=== PATIENT | female | born 1970 | race Caucasian/White ===

== ENCOUNTER 2020-09-13 14:18 | Outpatient (CLI) | payer BC ==
--- NOTE | 2020-09-13 15:35 | MRI ---
Exam: Brain MRI without contrast HISTORY: Daily left-sided headaches, x3-4 months. COMPARISON: None FINDINGS: Calvarial marrow signal intensity: Appropriate T1 signal Gradient echo sequence: No hemorrhage Brain parenchyma: No mass, mass effect or midline shift. Brain volume, age-appropriate. Cortical adame-white matter differentiation: Preserved Restricted diffusion: Central arterial flow voids are maintained. Absent restricted diffusion White matter signal intensities:Scattered nonspecific T2, FLAIR white matter hyperintensities in the right frontal subcortical white matter. Sinuses: Small left maxillary sinus mucus retention cyst IMPRESSION: 1. No parenchymal mass tube. Absent restricted diffusion 2. Nonspecific right frontal subcortical white matter hyperintensities
--- NOTE | 2020-09-13 15:47 | MRI ---
MRI Cervical Spine WO Con History: Neck and occipital pain Comparison: Cervical spine MRI 2013 Findings: Cerebral tonsils terminate at the foramen magnum. Reversal of normal cervical lordosis due to degenerative disc space change at C4-C7. No marrow infiltrative process. Paraspinal musculature is symmetric. No cervical adenopathy. Levels are as follows: C2/C3: Mild disc desiccation and height loss. Minimal uncinate process hypertrophy. No neural foramin al or spinal canal narrowing. C3/C4: Mild disc desiccation and height loss. Moderate left and mild right uncinate process appear to be. No significant neural foraminal narrowing. C4/C5: Severe degenerative disc space height loss. Moderate-large circumferential disc osteophyte com plex. Anterior cord abutment. Spinal canal measures 7 mm. Moderate left and mild right neural foraminal narrowing. C5/C6: Severe degenerative disc space height loss. 2 mm retrolisthesis. Moderate circumferential disc osteophyte complex. Moderate left and mild right neural foraminal narrowing. Anterior and posterior cord abutment with the spinal canal measuring 7 mm. Normal cord signal and bulk. C6/C7: Mild disc desiccation and height loss. Small circumferential disc bulge. No neural foraminal o r spinal canal narrowing. C7/T1: Normal disc height and hydration. No neural foraminal or spinal canal narrowing. Impression: 1. Advanced spondylosis for age from C4-C6 with anterior cord abutment and C4/C5 as well as very mild complete loss of CSF space at C5/C6 with concern for early cord impingement. 2. Multilevel neural foraminal narrowing.
--- NOTE | 2020-09-13 16:10 | RAD ---
CERVICAL SPINE FIVE VIEWS INCLUDING FLEXION AND EXTENSION LATERAL VIEWS: History: Neck pain radiating into both arms and elbows. FINDINGS: C1 and odontoid is mostly obscured on the AP open mouth views. Internal fixation screws are noted sta bilizing the right and left mandibular rami regions. Focal disc osteophytosis at C4-5 and C5-6. No si gnificant abnormal translation between flexion and extension. No prevertebral soft tissue swelling. M ild retrolisthesis of C5 on C6. IMPRESSION: Cervical spondylosis with disc osteophytosis particularly at C4-5 and C5-6 with mild retrolisthesis o f C5 on C6. No abnormal translation between flexion and extension. POS: RRE
== END 2020-09-13 14:19 | disposition home or self-care (01) ==
LOC: BICMRI 14:18
PROVIDERS: ATTEND Nurse Practitioner Family
DX: M54.81 Occipital neuralgia (principal); R51.9 Headache, unspecified; M47.812 Spondylosis without myelopathy or radiculopathy, cervical region; M25.78 Osteophyte, vertebrae; M48.02 Spinal stenosis, cervical region; R90.82 White matter disease, unspecified
CPT/HCPCS: 70551; 72040; 72141

== ENCOUNTER 2023-04-25 09:49 | Outpatient (CLI) | payer BC | END 2023-04-25 09:50 | disposition home or self-care (01) | LOC: BICMAMMO 09:49 | PROVIDERS: ATTEND Family Medicine | DX: Z12.31 Encounter for screening mammogram for malignant neoplasm of breast (principal); Z13.820 Encounter for screening for osteoporosis; M85.89 Other specified disorders of bone density and structure, multiple sites; Z78.0 Asymptomatic menopausal state; Z85.828 Personal history of other malignant neoplasm of skin | CPT/HCPCS: 77063; 77067; 77080 ==

== ENCOUNTER 2023-08-16 10:25 | Outpatient (CLI) | payer BC | END 2023-08-16 10:26 | disposition home or self-care (01) | LOC: BICMRI 10:25 | PROVIDERS: ATTEND Orthopaedic Surgery | DX: S89.92XA Unspecified injury of left lower leg, initial encounter (principal); M22.42 Chondromalacia patellae, left knee; M71.22 Synovial cyst of popliteal space [Baker], left knee ==

== ENCOUNTER 2024-04-30 10:18 | Outpatient (CLI) | payer BC | END 2024-04-30 10:19 | disposition home or self-care (01) | LOC: BICMAMMO 10:18 | PROVIDERS: ATTEND Family Medicine | DX: Z12.31 Encounter for screening mammogram for malignant neoplasm of breast (principal); M85.80 Other specified disorders of bone density and structure, unspecified site; M81.0 Age-related osteoporosis without current pathological fracture; Z85.828 Personal history of other malignant neoplasm of skin | CPT/HCPCS: 77063; 77067; 77080 ==

== ENCOUNTER 2025-07-08 14:53 | Outpatient (CLI) | payer OTHER | END 2025-07-08 14:54 | disposition home or self-care (01) | LOC: BICMAMMO 14:53 | PROVIDERS: ATTEND Family Medicine | DX: M81.0 Age-related osteoporosis without current pathological fracture (principal); N95.9 Unspecified menopausal and perimenopausal disorder; M85.859 Other specified disorders of bone density and structure, unspecified thigh | CPT/HCPCS: 77080 ==